=== PATIENT | male | born 1990 | race Caucasian/White ===

== ENCOUNTER 2017-05-10 14:41 | Emergency (ER) | payer MEDICAID ==
[2017-05-10 14:50] VITALS: RESP 16; TEMP 99.1
--- NOTE | 2017-05-10 14:56 | EDPHY ---
H & P Stated Complaint: dx strep 3 days ago/rx abx not better Time Seen by Provider: 05/10/17 14:55 - Personal History Current Tetanus/Diphtheria Vaccine: Yes - Medical/Surgical History Hx Asthma: No Hx Chronic Respiratory Disease: No Hx Diabetes: No Hx Cardiac Disease: No Hx Renal Disease: No Hx Cirrhosis: No Hx Alcoholism: No Hx HIV/AIDS: No Hx Splenectomy or Spleen Trauma: No Other PMH: fx c7 - Social History Smoking Status: Never smoked Constitutional: Initial Vital Signs Temperature (C) 37.3 C 05/10/17 14:47 Heart Rate 82 05/10/17 14:47 Respiratory Rate 16 05/10/17 14:47 Blood Pressure 129/84 H 05/10/17 14:47 O2 Sat (%) 96 05/10/17 14:47 O2 Delivery Mode Room Air Allergies/Adverse Reactions: Penicillins Allergy (Verified 05/10/17 14:46) Home Medications: Medication Instructions Recorded AZITHROMYCIN 05/10/17 Cephalexin [Keflex (RX)] 500 mg PO TID #30 cap 05/10/17 Medical Decision Making ED Course/Re-evaluation: CHIEF COMPLAINT: Sore throat HISTORY OF PRESENT ILLNESS: The patient is a 27 y/o male complaining of worsening sore throat and swelling onset 3 days ago. He started Zithromax two days ago and has not had any improvement in his symptoms. Since waking this morning, he's noticed worsening throat swelling and worsening pain with swallowing. He has limited his food and fluid intake due to pain, but is still able to swallow. He denies difficulty breathing, vomiting, chest pain, or other symptoms. He is normally healthy. REVIEW OF SYSTEMS: A 10 point review of systems was performed and is negative with the exception of the elements mentioned in the history of present illness. PHYSICAL EXAM: HR, BP, O2 Sat, RR. Temp noted General Appearance: Alert, well hydrated, appropriate, and non-toxic appearing. Head: Atraumatic without scalp tenderness or obvious injury Eyes: Pupils equal, round, reactive to light and accommodation, EOMI, no trauma , no injection. Ears: Clear bilaterally, no perforation, normal landmarks Nose: Atraumatic, no rhinorrhea, clear. Throat: Significant erythema and bilateral exudates on hypertrophic tonsils, mucus membranes moist. Neck: Supple, nontender, no lymphadenopathy. Respiratory: No retractions, no distress, no wheezes, and no accessory muscle use. Lungs are clear to auscultation bilaterally. Cardiovascular: Regular rate and rhythm, no murmurs, rubs, or gallops. Good capillary refill all extremities. Gastrointestinal: Abdomen is soft, nontender, non-distended, no masses, no rebound, no guarding, no peritoneal signs. Musculoskeletal: Normal active ROM of all extremities, atraumatic. Neurological: Alert, appropriate, and interactive. Nonfocal neuro exam. Skin: No rashes, good turgor, no nodules on palpation. Past medical history: Denies. Immunocompetent. Past surgical history: denies Family history: noncontributory Social history: Single, from [place], employed. DIFFERENTIAL DIAGNOSIS: The differential diagnosis for the patient's symptoms included but was not limited to strep pharyngitis, viral pharyngitis, pneumonia , urinary tract infection, viral syndrome, meningitis, and sepsis. MEDICAL DECISION MAKING: This is a normally healthy 27 y/o male who presents with a 3-day history of worsening sore throat and dysphagia despite treatment with Zithromax beginning 2 days ago. He has significant pharyngeal erythema with some edema and tonsillar exudate on exam. He is afebrile here. He has had penicillin and and amoxicillin several times in the past, but after one dose in high school he developed a rash and was told to discontinue use due to possible allergy. He never had airway involvement during that reaction. Plan for 1gm IV ceftriaxone, 10mg IV Decadron, and 1L IV NS here. He will be discharged on Keflex with referral to PCP as well as adoption agent for PCN testing. Return precautions discussed. He is comfortable with this plan. - Data Points Medications Given: Discontinued Medications Dexamethasone (Decadron Injection) 10 mg IVP EDNOW ONE Stop: 05/10/17 15:18 Last Admin: 05/10/17 15:33 Dose: 10 mg Ceftriaxone Sodium/Dextrose (Rocephin 1 Gm (Premix)) 50 mls @ 100 mls/hr IV EDNOW ONE PRN Reason: Protocol Stop: 05/10/17 15:45 Last Admin: 05/10/17 15:32 Dose: 50 mls Sodium Chloride (Ns) 1,000 mls @ 0 mls/hr IV ONCE ONE; Wide Open PRN Reason: Protocol Stop: 05/10/17 15:33 Last Admin: 05/10/17 15:33 Dose: 1,000 mls Departure - Departure Disposition: Home, Routine, Self-Care Clinical Impression: Strep pharyngitis Condition: Good Instructions: Cephalexin (By mouth), Pharyngitis (ED), Strep Throat (ED) Additional Instructions: 1. Take Keflex as prescribed. Be sure to complete the entire prescription even if you feel better. 2. Use Tylenol and ibuprofen as directed for pain and fever over the next few days. 3. Follow up with an ENT for unimproved symptoms over the next few days. You've been referred to Dr. Bentley. 4. Return to the ED for difficulty breathing, inability to swallow, or other worsening of condition. 5. When you are feeling better, follow up with an adoption agent to determine if you have a penicillin allergy or not as this will be useful information for you to have for any future infection. You've been referred to Dr. cMkeon. Adult Pain & Fever Control: We recommend Acetaminophen (Tylenol) and Ibuprofen (Motrin,Advil) for pain and fever control. When fever is high or pain severe, both drugs can be used at the same time, but at different intervals. Please note the time differences. Your dose is: Acetaminophen 650mg every 4 to 6 hours Ibuprofen 600mg every 6-8 hours with food Note: do not take Acetaminophen with Hydrocodone (Vicodin, Lortab) or Oxycodone (Percocet). These medications also contain Acetaminophen. No more than 3000mg of Acetaminophen should be taken in 24 hours (for an adult). Referrals: Amairani Liang MD [Medical Doctor] - As per Instructions Coby Mckeon MD [Medical Doctor] - As per Instructions Prescriptions: Cephalexin [Keflex (RX)] 500 mg PO TID #30 cap Report Scribed for: Ger Galdamez Report Scribed by: Sherrie Packer Date of Report: 05/10/17 Time of Report: 15:15
[2017-05-10] MEDS ORDERED: DEXAMETHASONE 10 MG/ML VIAL IVP ONE (15:17)
[2017-05-10] MEDS ORDERED: NS 1,000 ML IV ONE (15:32)
[2017-05-10 16:52] VITALS: BP 137/78; PULSE 88; O2SAT 98
== END 2017-05-10 16:51 | disposition home or self-care (01) ==
PROC: 3E0337Z Introduction of Electrolytic and Water Balance Substance into Peripheral Vein, Percutaneous Approach (ICD-10-PCS; principal; 2017-05-10)
DX: J02.0 Streptococcal pharyngitis (principal); E86.9 Volume depletion, unspecified
CPT/HCPCS: 96365; J0696; J1100